=== PATIENT | male | born 1970 ===

== ENCOUNTER 2017-01-22 08:58 | Emergency (ER) | payer OTHER ==
[2017-01-22 09:09] VITALS: BMI 37.5
[2017-01-22 09:11] VITALS: BP 147/97; PULSE 65; RESP 17; TEMP 98.3; O2SAT 100
--- NOTE | 2017-01-22 10:00 | C.PDOC ---
History Of Present Illness 46 year old male, with no significant PMHx, presents to the ED for evaluation of intermittent pain and swelling to his left knee (below kneecap) which began around 2 months ago. 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 Patient describes his pain as dull and states it worsens with kneeling down. Patient denies fever, chills, direct trauma/injury to the affected area. Time Seen by Provider: 01/22/17 09:11 Chief Complaint (Nursing): Lower Extremity Problem/Injury History Per: Patient History/Exam Limitations: no limitations Onset/Duration Of Symptoms: Intermittent Episodes (2 months ) Current Symptoms Are (Timing): Still Present Additional History Per: Patient - Knee Description Of Injury: denies: Fell, Struck With Object, Struck Against Object, Twisted Past Medical History Reviewed: Historical Data, Nursing Documentation, Vital Signs Vital Signs: Last Vital Signs Temp 98.3 F 01/22/17 09:09 Pulse 65 01/22/17 09:09 Resp 17 01/22/17 09:09 BP 147/97 H 01/22/17 09:09 Pulse Ox 100 01/22/17 13:03 - Medical History PMH: No Chronic Diseases Surgical History: No Surg Hx Family History: States: Unknown Family Hx - Social History Hx Alcohol Use: No Hx Substance Use: No - Immunization History Hx Tetanus Toxoid Vaccination: No Hx Influenza Vaccination: No Hx Pneumococcal Vaccination: No Review Of Systems Constitutional: Negative for: Fever, Chills Musculoskeletal: Positive for: Other (left knee pain and swelling ) Physical Exam - Physical Exam Appears: Non-toxic, No Acute Distress Skin: Normal Color, Warm, Dry Extremity: Normal ROM, No Tenderness, Capillary Refill (less than 2 seconds), No Deformity, Other (left knee: 5x5cm area of swelling that is soft and nontender to palpation. no erythema, no discharge, no induration. ) Neurological/Psych: Oriented x3, Normal Speech, Normal Cognition Gait: Steady ED Course And Treatment O2 Sat by Pulse Oximetry: 100 (on RA) Pulse Ox Interpretation: Normal Medical Decision Making Medical Decision Making: Progress: On reassessment, patient is resting comfortably, showing no signs of distress and is stable for discharge. Patient is advised to follow up with his PMD within 1-2 days for further evaluation and/or return to the ED if symptoms worsen. Disposition Counseled Patient/Family Regarding: Need For Followup - Disposition Referrals: [facility] [Outside] Disposition: HOME/ ROUTINE Disposition Time: 09:59 Condition: STABLE Instructions: Knee Bursitis (ED) Forms: Gen Discharge Inst Gabonese, Work Excuse - POA Present On Arrival: None - Clinical Impression Clinical Impression: Bursitis of knee - Scribe Statement The provider has reviewed the documentation as recorded by the Scribe (Amber Covarrubias) Provider Attestation: All medical record entries made by the Scribe were at my direction and personally dictated by me. I have reviewed the chart and agree that the record accurately reflects my personal performance of the history, physical exam, medical decision making, and the department course for this patient. I have also personally directed, reviewed, and agree with the discharge instructions and disposition.
== END 2017-01-22 10:04 | disposition home or self-care (01) ==
LOC: C.ER 08:58
DX: M70.52 Other bursitis of knee, left knee (principal)

== ENCOUNTER 2017-12-01 07:57 | Emergency (ER) | payer OTHER ==
[2017-12-01 07:57] VITALS: BMI 36.7
[2017-12-01 08:07] VITALS: PULSE 75
[2017-12-01] MEDS ORDERED: Sodium Chloride 0.9% 1,000 ML IV ONE (08:34)
[2017-12-01 08:39] LABS: URINE BACTERIA RARE (<OCC); URINE BILIRUBIN NEGATIVE (NEGATIVE); URINE BLOOD NEGATIVE (NEGATIVE); URINE CLARITY Clear (Clear); URINE COLOR Yellow (YELLOW); URINE GLUCOSE (UA) NORMAL (Normal); URINE LEUKOCYTE ESTERASE NEG Leu/uL (Negative); URINE PROTEIN NEGATIVE (NEGATIVE); URINE UROBILINOGEN NORMAL mg/dL (0.2-1.0)
[2017-12-01] MEDS ORDERED: Sodium Chloride 0.9% 1,000 ML ONE (08:46)
--- NOTE | 2017-12-01 08:55 | C.PDOC ---
History Of Present Illness 46 y/o male presents to ED with c/o left flank pain for 2 weeks associated with tactile fever. Patient has taken Ibuprofen with no improvement. Patient denies nausea, vomiting, diarrhea, dysuria or any other complaints at this time. Time Seen by Provider: 12/01/17 08:07 Chief Complaint (Nursing): Male Genitourinary History Per: Patient History/Exam Limitations: no limitations Onset/Duration Of Symptoms: Days Current Symptoms Are (Timing): Still Present Quality Of Discomfort: "Pain" Past Medical History Reviewed: Historical Data, Nursing Documentation, Vital Signs Vital Signs: Last Vital Signs Temp 97.7 F 12/01/17 08:06 Pulse 75 12/01/17 08:06 Resp 20 12/01/17 08:06 BP 136/89 12/01/17 08:06 Pulse Ox 98 12/01/17 10:57 - Medical History PMH: No Chronic Diseases Surgical History: No Surg Hx Family History: States: No Known Family Hx - Social History Hx Alcohol Use: No Hx Substance Use: No - Immunization History Hx Tetanus Toxoid Vaccination: No Hx Influenza Vaccination: No Hx Pneumococcal Vaccination: No Review Of Systems Except As Marked, All Systems Reviewed And Found Negative. Musculoskeletal: Positive for: Other (flank pain) Physical Exam - Physical Exam Appears: Non-toxic, No Acute Distress Skin: Warm, Dry, No Rash Head: Atraumatic, Normacephalic Eye(s): bilateral: Normal Inspection Oral Mucosa: Moist Neck: Supple Cardiovascular: Rhythm Regular Respiratory: Normal Breath Sounds, No Rales, No Rhonchi, No Wheezing Gastrointestinal/Abdominal: Soft, No Tenderness, No Guarding, No Rebound Back: CVA Tenderness (left ), No Muscle Spasm Extremity: Normal ROM, Capillary Refill (<2 seconds) Neurological/Psych: Oriented x3, Normal Speech, Normal Cognition, Normal Motor, Normal Sensation ED Course And Treatment - Laboratory Results Result Diagrams: 12/01/17 08:51 12/01/17 08:51 O2 Sat by Pulse Oximetry: 98 (RA) Pulse Ox Interpretation: Normal Medical Decision Making Medical Decision Making: Assessment: Flank pain Plan: -- Labs -- CT Abd/Pelvis -- Urinalysis -- IV Fluids -- Toradol 30mg IVP -- Pepcid 20mg IVP 0924 CT Abdomen FINDINGS: LOWER THORAX: Mild atelectasis at the lung bases. LIVER: Unremarkable. No gross lesion or ductal dilatation. GALLBLADDER AND BILE DUCTS: Unremarkable. PANCREAS: Unremarkable. No gross lesion or ductal dilatation. SPLEEN: Unremarkable. ADRENALS: Unremarkable. No mass. KIDNEYS AND URETERS: Unremarkable. No hydronephrosis. No solid mass. VASCULATURE: Unremarkable. No aortic aneurysm. BOWEL: Colonic diverticulosis. Underdistention and or mild thickening of the descending colon. Clinical correlation. Mild thickening of the gastric mucosa. Clinical correlation. APPENDIX: No findings to suggest acute appendicitis. PERITONEUM: Unremarkable. No free fluid. No free air. LYMPH NODES: Few shotty inguinal and para-aortic. Few shotty mesenteric lymph nodes. BLADDER: Unremarkable. REPRODUCTIVE: Unremarkable. BONES: No acute fracture. OTHER FINDINGS: None. IMPRESSION: Colonic diverticulosis. Underdistention and or mild thickening of the descending colon. Clinical correlation. Mild thickening of the gastric mucosa. Clinical correlation. 0954 Patient given IV Cippro and Flagyl 1100 On reassessment, patient reports feeling better and states symptoms have improved. Patient advised to follow up with GI in 2-3 days. Stable for d/c home. Disposition Counseled Patient/Family Regarding: Studies Performed, Diagnosis, Need For Followup, Rx Given - Disposition Referrals: Cain Zaragoza MD [Staff Provider] - Disposition: HOME/ ROUTINE Disposition Time: 10:55 Condition: STABLE Additional Instructions: follow up with Dr. Zaragoza within 2 days call to make an appointment take medications as prescribed return to ER if symptoms worsens or progress Prescriptions: Ciprofloxacin HCl [Cipro] 500 mg PO BID #20 tab Famotidine [Pepcid] 20 mg PO BID #20 tab Metronidazole [Flagyl] 500 mg PO BID #20 tablet Naproxen [Naprosyn] 500 mg PO BID PRN #16 tab PRN Reason: Pain, Moderate (4-7) Instructions: Acute Abdomen (Belly Pain), Adult (DC) Forms: Gen Discharge Inst Fijian, [employer] (Fijian), Work Excuse Print Language: ARABIC - Clinical Impression Clinical Impression: Abdominal pain - Scribe Statement The provider has reviewed the documentation as recorded by the Luceroibluz Blackwell All medical record entries made by the Luceroibe were at my direction and personally dictated by me. I have reviewed the chart and agree that the record accurately reflects my personal performance of the history, physical exam, medical decision making, and the department course for this patient. I have also personally directed, reviewed, and agree with the discharge instructions and disposition.
[2017-12-01 09:01] LABS: BASO % 0.7 % (0.0-2.0); EOS # 0.9 K/uL (0.0-0.7); EOS % 14.9 % (0.0-4.0); LYMPH # 2.1 K/uL (1.0-4.3); LYMPH % 33.3 % (20.0-40.0); MEAN CORPUSCULAR HEMOGLOBIN 32.9 pg (27.0-31.0); MEAN CORPUSCULAR HGB CONC 35.1 g/dL (33.0-37.0); MEAN PLATELET VOLUME 8.7 fL (7.2-11.7); MONO # 0.5 K/uL (0.0-0.8); MONO % 7.7 % (0.0-10.0); NEUT # 2.7 K/uL (1.8-7.0); NEUT % 43.4 % (50.0-75.0); RBC 4.27 Mil/uL (4.40-5.90); RED CELL DISTRIBUTION WIDTH 13.7 % (11.5-14.5); WHITE BLOOD COUNT 6.2 K/uL (4.8-10.8)
[2017-12-01 09:02] LABS: MEAN CELL VOLUME 93.7 fL (80.0-94.0)
--- NOTE | 2017-12-01 09:52 | CT ---
Date of service: 12/01/2017 PROCEDURE: CT Abdomen and Pelvis without intravenous contrast HISTORY: Abdominal pain COMPARISON: None. TECHNIQUE: Multiple contiguous axial images were through the abdomen and pelvis without the use of intravenous contrast. Subsequently, sagittal and coronal reformatted images were obtained. Radiation dose: Total exam DLP = 1162 mGy-cm. This CT exam was performed using one or more of the following dose reduction techniques: Automated exposure control, adjustment of the mA and/or kV according to patient size, and/or use of iterative reconstruction technique. FINDINGS: LOWER THORAX: Mild atelectasis at the lung bases. LIVER: Unremarkable. No gross lesion or ductal dilatation. GALLBLADDER AND BILE DUCTS: Unremarkable. PANCREAS: Unremarkable. No gross lesion or ductal dilatation. SPLEEN: Unremarkable. ADRENALS: Unremarkable. No mass. KIDNEYS AND URETERS: Unremarkable. No hydronephrosis. No solid mass. VASCULATURE: Unremarkable. No aortic aneurysm. BOWEL: Colonic diverticulosis. Underdistention and or mild thickening of the descending colon. Clinical correlation. Mild thickening of the gastric mucosa. Clinical correlation. APPENDIX: No findings to suggest acute appendicitis. PERITONEUM: Unremarkable. No free fluid. No free air. LYMPH NODES: Few shotty inguinal and para-aortic. Few shotty mesenteric lymph nodes. BLADDER: Unremarkable. REPRODUCTIVE: Unremarkable. BONES: No acute fracture. OTHER FINDINGS: None. IMPRESSION: Colonic diverticulosis. Underdistention and or mild thickening of the descending colon. Clinical correlation. Mild thickening of the gastric mucosa. Clinical correlation.
[2017-12-01 10:27] LABS: ALB/GLOB RATIO 1.1 (1.0-2.1); ALBUMIN 4.2 g/dL (3.5-5.0); ALT/SGPT 32 U/L (21-72); AST/SGOT 26 U/L (17-59); BLOOD UREA NITROGEN 12 mg/dL (9-20); GFR NON-AFRICAN AMERICAN > 60; LIPASE 64 U/L (23-300)
[2017-12-01 11:39] VITALS: BP 129/82; RESP 17; TEMP 97.8; O2SAT 99
== END 2017-12-01 11:38 | disposition home or self-care (01) ==
LOC: C.ER 07:57
DX: R10.9 Unspecified abdominal pain (principal)
CPT/HCPCS: 74176; 80053; 81001; 83690; 85025; 96361; 96374; 96375; 99285; J1885; J7030

== ENCOUNTER 2018-02-16 16:20 | Emergency (ER) | payer OTHER ==
[2018-02-16 16:20] VITALS: BMI 36.7
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
[2018-02-16 18:31] VITALS: BP 113/73; PULSE 73; RESP 20; TEMP 97.6
[2018-02-16 18:35] VITALS: O2SAT 95
== END 2018-02-16 18:31 | disposition home or self-care (01) ==
LOC: C.ER 16:20
DX: S46.912A Strain of unspecified muscle, fascia and tendon at shoulder and upper arm level, left arm, initial encounter (principal); S46.911A Strain of unspecified muscle, fascia and tendon at shoulder and upper arm level, right arm, initial encounter; X58.XXXA Exposure to other specified factors, initial encounter